=== PATIENT | female | born 1955 | race Caucasian/White ===

== ENCOUNTER 2017-06-27 17:50 | Emergency (ER) | payer MEDICARE, MEDICAID ==
[2017-06-27] MEDS ORDERED: HYDROCODONE/APAP 5/325MG TABLET PO ONE (17:59)
--- NOTE | 2017-06-27 18:05 | Emergency Department Record ---
History of Present Illness - General Chief complaint: Lower Extremity Pain Stated complaint: LT LEG PAIN Time Seen by Provider: 06/27/17 17:52 Source: Patient Mode of Arrival: Ambulatory Limitations: No limitations - History of Present Illness Initial comments: 62 yo female presents with pain in the left upper lateral lower leg for over a week. She does not remember any trauma. She was seen by her visiting physician and a doppler was performed per the patient. She reports the results were negative for blood clots. The pain has continued. No fever. No redness. She points to the area of the proximal fibula and a little distal from there. No numbness, coolness, tingling. No coolness to the foot. MD Complaint: Extremity pain, Joint pain -: Week(s) (1) Location: Left -: Yes Arthralgia, Yes Myalgia Consistency: Constant Improves with: Immobilization Worsens with: Exertion, Palpation Associated Symptoms: Denies other symptoms - Related Data Home Medications Medication Instructions Recorded Confirmed Last Taken Alprazolam [Alprazolam] 1 mg PO ASDIR 10/02/16 06/27/17 10/01/16 Calcium Carb/Vitamin D3/Vit K1 1 tab PO ASDIR 10/02/16 06/27/17 08/25/16 [Calcium + D Soft Chewable Tab] Duloxetine HCl [Cymbalta] 60 mg PO ASDIR 10/02/16 06/27/17 08/25/16 Methylphenidate HCl 10 mg PO ASDIR 10/02/16 06/27/17 08/25/16 [Methylphenidate ER] Quetiapine Fumarate [Seroquel] 200 mg PO QHS 10/02/16 06/27/17 08/25/16 Previous Rx's Medication Instructions Recorded Hydrocodone/Acetaminophen [Cairo 1 each PO Q8H #12 tablet 06/27/17 5-325 Tablet] Allergies Allergy/AdvReac Type Severity Reaction Status Date / Time No Known Drug Allergies Allergy Verified 10/02/16 18:41 Review of Systems Constitutional: Denies: Chills, Fever, Malaise, Weakness Eyes: Denies: Eye discharge ENT: Denies: Congestion Respiratory: Denies: Cough Cardiovascular: Denies: Chest pain, Dyspnea on exertion, Edema Endocrine: Denies: Fatigue Gastrointestinal: Denies: Abdominal pain, Diarrhea, Nausea, Vomiting Genitourinary: Denies: Dysuria, Urgency Musculoskeletal: Reports: Arthralgia, Joint swelling, Myalgia Skin: Denies: Bruising, Change in color, Rash Neurological: Denies: Headache Psychiatric: Denies: Anxiety Hematological/Lymphatic: Denies: Blood Clots, Easy bleeding, Easy bruising, Swollen glands Past Medical History - SOCIAL HISTORY Smoking Status: Current every day smoker Drug Use: None - RESPIRATORY Hx Respiratory Disorders: No - CARDIOVASCULAR Hx Cardio Disorders: No - NEURO Hx Neuro Disorders: No - GI Hx GI Disorders: No - Hx Genitourinary Disorders: No - ENDOCRINE Hx Endocrine Disorders: No - MUSCULOSKELETAL Hx Musculoskeletal Disorders: Yes Hx Back Injury: Yes Comment:: ataxia with radiculopathy - PSYCH Hx Psych Problems: Yes Hx Anxiety: Yes Hx Depression: Yes - HEMATOLOGY/ONCOLOGY Hx Hematology/Oncology Disorders: No Physical Exam - General General Appearance: Alert, Oriented x3, Cooperative, No acute distress Limitations: No limitations - Head Head exam: Atraumatic, Normal inspection - Eye Eye exam: Normal appearance, PERRL. negative: Conjunctival injection, Scleral icterus - ENT ENT exam: Normal exam Ear exam: Normal external inspection Nasal Exam: Normal inspection Mouth exam: Normal external inspection - Neck Neck exam: Normal inspection - Cardiovascular Cardiovascular Exam: Regular rate, Normal rhythm, Normal heart sounds Peripheral Pulses: 2+: Dorsalis Pedis (L) - Rectal Rectal exam: Deferred - exam: Deferred - Extremities Extremities exam: Normal inspection, Full ROM, Normal capillary refill, Tenderness, Other (No popliteal tenderness, no calf tenderness, point tender later over the area of the proximal fibula, no warmth or erythema). negative: Calf tenderness, Joint swelling, Pedal edema - Back Back exam: Denies: CVA tenderness (R), CVA tenderness (L) - Neurological Neurological exam: Alert, Oriented X3 - Psychiatric Psychiatric exam: Normal affect, Normal mood - Skin Skin exam: Dry, Intact, Normal color, Warm. negative: Diaphoretic, Erythema, Mottled, Rash Course - Reevaluation(s) Reevaluation #1: No acute changes on the XR, mild degenerative changes, no soft tissue swelling or abnormality 06/27/17 18:42 Disposition Disposition: Discharge Clinical Impression: Leg pain, left Disposition: Home, Self-Care Condition: (1) Good Instructions: Knee Pain (ED) Additional Instructions: Call your doctor tomorrow to be seen and discuss your pain that has not gone away Return if uncontrolled pain, redness, swelling or any concerns Prescriptions: Hydrocodone/Acetaminophen [Cairo 5-325 Tablet] 1 each PO Q8H #12 tablet Forms: Patient Portal Access Time of Disposition: 18:43 Quality - Quality Measures Quality Measures: N/A - Blood Pressure Screening View Details: Yes Blood Pressure Classification: Pre-Hypertensive BP Reading Systolic Measurement: 137 Diastolic Measurement: 88 Screening for High Blood Pressure: < Pre-Hypertensive BP, F/U Documented > [ G8950] Pre-Hypertensive Follow-up Interventions: Referral to alternative/primary care provider.
--- NOTE | 2017-06-28 15:02 | RADIOLOGY REPORT ---
EXAM: LEFT LOWER LEG HISTORY: LEFT LOWER EXTREMITY PAIN. NO TRAUMA REPORTED. TECHNIQUE: AP and lateral views of the left lower leg were obtained. Comparison: None. Encounter: Initial. FINDINGS: There is mild osteopenia diffusely. No acute fracture, dislocation, or destructive bone lesion is seen. There are mild degenerative changes of the knee and ankle joint. No suspicious soft tissue abnormality. IMPRESSION: NO ACUTE BONE NOR JOINT ABNORMALITY. MINOR DEGENERATIVE CHANGES OF THE LEFT KNEE AND ANKLE. JOB NUMBER: [id number] MTDD
== END 2017-06-27 18:53 | disposition home or self-care (01) ==
LOC: ER 17:50
DX: M79.662 Pain in left lower leg (principal)
CPT/HCPCS: 99283

== ENCOUNTER 2017-09-08 12:29 | Emergency (ER) | payer MEDICARE, MEDICAID ==
[2017-09-08] MEDS ORDERED: KETOROLAC 30 MG/ML VIAL IM ONE (12:51)
--- NOTE | 2017-09-08 13:02 | Emergency Department Record ---
History of Present Illness - General Chief Complaint: Fall Injury Stated Complaint: FALL INJURY Time Seen by Provider: 09/08/17 12:47 Source: Patient, Family Mode of Arrival: EMS Limitations: No limitations - History of Present Illness Initial Comments: The patient is here due to L flank and back pain for about an hour. She was on the cammode and slipped off and got caught between the cammode and tub. She did injure her L lower back area but denies any head injury, neck pain, CP or SOB. The patient had no LOC but does have a chronic issue with ataxia and is chronically unsteady on her feet. She denies any recent illnesses or injuries and does not take blood thinners. Complaint: Fall Onset/Timin -: Minutes(s) Fall From: Standing When Fall Occurred: 1 hour [employer] Fall Witnessed: No Place Fall Occurred: Home Loss of Consciousness: None Prolonged Down Time?: No Symptoms Prior to Fall: None Location: Back Severity: Moderate Severity scale (1-10): 10 Quality: Aching Associated Symptoms: Denies - Renate Coma Scale Eye Response: (4) Open spontaneously Motor Response: (6) Obeys commands Verbal Response: (5) Oriented Hiram Total: 15 - Related Data Home Medications Medication Instructions Recorded Confirmed Last Taken Naproxen Sodium 220 mg PO ASDIR 09/08/17 09/08/17 1 Day Ago ~09/07/17 Pregabalin [Lyrica] 150 mg PO BID 09/08/17 09/08/17 1 Day Ago ~09/07/17 Simvastatin [Zocor] 20 mg PO DAILY 09/08/17 09/08/17 1 Day Ago ~09/07/17 Allergies Allergy/AdvReac Type Severity Reaction Status Date / Time No Known Drug Allergies Allergy Verified 09/08/17 12:41 Travel Screening - Travel/Exposure Within Last 30 Days Have you traveled within the last 30 days?: No - Travel/Exposure Within Last Year Have you traveled outside the [place] 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 - GI Hx GI Disorders: No - Hx Genitourinary Disorders: No - ENDOCRINE Hx Endocrine Disorders: No - MUSCULOSKELETAL Hx Musculoskeletal Disorders: Yes Hx Back Injury: Yes Comment:: ataxia with radiculopathy - PSYCH Hx Psych Problems: Yes Hx Anxiety: Yes Hx Depression: Yes - HEMATOLOGY/ONCOLOGY Hx Hematology/Oncology Disorders: No Family Medical History Any Significant Family History?: Yes Physical Exam - General General Appearance: Alert, Oriented x3, Cooperative, No acute distress - Head Head exam: Atraumatic, Normocephalic, Normal inspection - Eye Eye exam: Normal appearance, PERRL - Neck Neck exam: Normal inspection, Full ROM. negative: Tenderness (There is no posterior Cspine tenderness.) - Respiratory Respiratory exam: Normal lung sounds bilaterally. negative: Respiratory distress - Cardiovascular Cardiovascular Exam: Regular rate, Normal rhythm, Normal heart sounds - GI/Abdominal GI/Abdominal exam: Soft, Normal bowel sounds. negative: Tenderness - Extremities Extremities exam: Normal inspection, Full ROM, Normal capillary refill. negative: Tenderness - Back Back exam: Reports: Normal inspection, Paraspinal tenderness, Vertebral tenderness Image of Body Front/Back: 1 - Area of pain and tenderness. There is no swelling, bruising, or abrasions present. Course Vital Signs 09/08/17 12:31 Temperature 97.9 F Pulse Rate 81 Respiratory 18 Rate Blood Pressure 140/81 Pulse Ox 92 L - Reevaluation(s) Reevaluation #1: The patient is doing better but is still having significant pain. We will add a Dilaudid pain shot for pain relief. 09/08/17 15:00 Reevaluation #2: The patient is doing much better at this time. She states she is having some pain but it is much improved. She would like to go home. 09/08/17 16:15 Reevaluation #3: The patient is doing a lot better at this time. She is up walking with a walker normally for her. She has no new ataxia or unsteadiness and her gait is normal per her caregiver. The patient is repeatedly asking to go home and feels comfortable at home. 09/08/17 16:28 Medical Decision Making - Data Complexity MDM Data: Labs Ordered and/or Reviewed, X-Ray Ordered and/or Reviewed - Lab Data Result diagrams: 09/08/17 13:00 09/08/17 13:00 - Radiology Data Radiology results: Report reviewed (Pelvis and Lumbar xrays: No acute traumatic changes per Rad.) Disposition Disposition: Discharge Clinical Impression: Back pain Qualifiers: Back pain location: low back pain Chronicity: acute Back pain laterality: left Sciatica presence: without sciatica Qualified Code(s): M54.5 - Low back pain Disposition: Home, Self-Care Condition: (1) Good Instructions: Fall Prevention for Older Adults (ED), Low Back Strain (ED) Additional Instructions: Please continue your regular medicines. Please see your PCP for recheck on Monday. Return to the ER for any increasing pain, weakness, numbness or any bowel or bladder issues. Forms: Patient Portal Access Time of Disposition: 16:31 Quality - Quality Measures Quality Measures: N/A - Blood Pressure Screening View Details: Yes Does Patient Have Any of the Following: No Blood Pressure Classification: Pre-Hypertensive BP Reading Systolic Measurement: 140 Diastolic Measurement: 81 Screening for High Blood Pressure: < Pre-Hypertensive BP, F/U Documented > [ G8950] Pre-Hypertensive Follow-up Interventions: Referral to alternative/primary care provider.
[2017-09-08 13:10] LABS: BASO % 0.4 % (0-6); EOS % 1.3 % (0-6); GRAN % 62.4 % (47-80); HEMATOCRIT 41.8 % (35.0-47.0); MEAN CELL VOLUME 87.6 fl (81-97); MEAN CORPUSCULAR HEMOGLOBIN 29.4 pg (27-33); MEAN CORPUSCULAR HGB CONC 33.5 g/dl (32-36); MEAN PLATELET VOLUME 12.5 fl (7.4-10.4); MONO % 8.9 % (0-9); PLATELET COUNT 341 K/uL (130-400); RED BLOOD COUNT 4.77 M/uL (3.80-5.40); WHITE BLOOD COUNT W/O DIFF 13.1 K/uL (4.2-12.2)
[2017-09-08 13:29] LABS: ALB/GLOB RATIO 0.9 (1.1-1.8); ALBUMIN 3.4 g/dL (4.0-5.0); ALKALINE PHOSPHATASE 144 U/L (35-104); ALT/SGPT 17 U/L (<33); AST/SGOT 22 U/L (10.0-35.0); BLOOD UREA NITROGEN 14 mg/dL (8-23); CREATININE 0.5 mg/dL (0.5-0.9); EST GLOMERULAR FILTRATION RATE > 60 mL/min; GLUCOSE,RANDOM 99 mg/dL (74-109); TOTAL PROTEIN 7.4 g/dL (6.6-8.7)
[2017-09-08] MEDS ORDERED: HYDROMORPHONE HCL 1MG/ML **SYRINGE IM ONE (14:50)
[2017-09-08] MEDS ORDERED: HYDROCODONE/APAP 5/325MG TABLET PO ONE (16:28)
--- NOTE | 2017-09-09 13:18 | RADIOLOGY REPORT ---
EXAM: LUMBAR SPINE / AP LAT HISTORY: BACK PAIN. TECHNIQUE: AP and lateral views of the lumbar spine were performed. FINDINGS: Post-op fusion at L4 through S1 levels. Stimulator device in place. No evidence of fracture. Mild disc space narrowing at L3-4. There is atheromatous change of the abdominal vasculature. IMPRESSION: POST-OP SURGICAL CHANGE. NO COMPLICATING PROCESS. JOB NUMBER: [id number] MTDD
--- NOTE | 2017-09-09 13:20 | RADIOLOGY REPORT ---
EXAM: PELVIS, AP HISTORY: PAIN. TECHNIQUE: A single AP view of the pelvis was performed. FINDINGS: There is mild medial joint space narrowing in both hip joints. No evidence of fracture or dislocation. No lytic or blastic lesion. IMPRESSION: MILD MEDIAL JOINT SPACE NARROWING IN BOTH HIP JOINTS. THE REMAINDER OF THE EXAMINATION IS UNREMARKABLE. JOB NUMBER: [id number] MTDD
== END 2017-09-08 17:01 | disposition home or self-care (01) ==
LOC: ER 12:29
DX: G89.11 Acute pain due to trauma (principal); M54.5 Low back pain; M25.559 Pain in unspecified hip; W18.11XA Fall from or off toilet without subsequent striking against object, initial encounter; Y92.002 Bathroom of unspecified non-institutional (private) residence as the place of occurrence of the external cause
CPT/HCPCS: 99283; 96372; 99284; 85025; 80053; 72100; 72170; J1885; J1170